=== PATIENT | male | born 1990 | race Caucasian/White ===

== ENCOUNTER 2018-04-04 16:29 | Emergency (ER) | payer OTHER, SELFPAY ==
[2018-04-04 16:32] VITALS: BP 169/101; PULSE 98; RESP 16; TEMP 36.8; O2SAT 98; BMI 40.6
--- NOTE | 2018-04-04 17:55 | CT_ITS ---
STUDY: CT ABDOMEN AND PELVIS WITHOUT CONTRAST REASON FOR EXAM: Male, 27 years old. Right flank pain and history of kidney stones RADIATION DOSAGE (If Supplied By Facility): CTDIvol = ( 23.54 ) mGy, DLP = ( 1293.97 ) mGycm TECHNIQUE: Transaxial images were obtained from the dome of the diaphragm to the symphysis pubis without oral contrast, and without intravenous contrast. Sagittal and coronal images were reconstructed. Individualized dose optimization techniques were used for this CT. COMPARISON: None. FINDINGS: The visualized lung bases are unremarkable. The visualized portions of the heart are within normal limits. Normal liver. Normal gallbladder and extrahepatic biliary system. Normal spleen. Normal pancreas. Normal bilateral adrenal glands. Moderate right-sided hydronephrosis and perinephric fat stranding. There is a stone at the right UPJ measuring 1 cm. Normal left kidney. Normal visualized stomach. Normal small intestine. Normal colon. The appendix is visualized and appears normal. Normal abdominal aorta. Normal inferior vena cava. Normal retroperitoneum. Normal urinary bladder. Normal abdominal wall. Normal osseous structures. CT/Abdomen/Pelvis without Cont IMPRESSION: Right hydronephrosis and stone at the right UPJ as above Electronically Signed: Stiven Marie DO at 19:11 EDT Tel , Service support ,
[2018-04-04] MEDS: Ondansetron 4 MG/2 ML Vial IV (18:01)
[2018-04-04] MEDS: 0.9% Normal Saline 1,000 ML 250 ML IV (18:01)
[2018-04-04] MEDS: Ketorolac 30 MG/ML Syringe IV (18:01)
[2018-04-04] MEDS: 0.9% Normal Saline 1,000 ML 999 ML IV (20:11)
[2018-04-04 20:12] LABS: Absolute Lymphocyte Count 2.06 X10^3/ul (0.83-4.51); Absolute Neutrophil Count 12.7 X10^3/uL (2.0-7.7); Basophil# 0.05 X10^3/uL; Basophil% 0.3 % (0-1); Eosinophil# 0.08 X10^3/uL; Eosinophils% 0.5 % (0-5); Hematocrit 43.8 % (40-54); Hemoglobin 15.4 g/dl (13.0-16.5); Lymphocyte # 2.06 X10^3/ul (4.0); Mean Corp Hgb Conc 35.2 g/gl (32-36); Mean Corpuscular Hgb 29.4 pg (27.0-32.0); Mean Corpuscular Volume 83.7 fL (80-94); Mean Platelet Vol. 10.3 fl (6.2-12.0); Monocyte# 0.94 X10^3/uL; Monocyte% 5.9 % (0-10); POSITIVE COUNT NO; POSITIVE DIFFERENTIAL NO; POSITIVE MORPHOLOGY NO; Platelet Count 418 K/mm3 (150-450); RBC Distribution Width CV 13.3 % (11.6-14.6); RBC Distribution Width SD 41.1 fl (35.1-43.9); Red Blood Count 5.23 M/mm3 (4.6-6.2); White Blood Count 15.9 K/mm3 (4.4-11.0)
[2018-04-04 20:13] VITALS: BP 152/93; PULSE 86; RESP 16; O2SAT 96
[2018-04-04 20:20] LABS: Bacteria 0 SEEN /hpf (None Seen); Mucous, Urine 0 SEEN /hpf (<or=2+); White Blood Cells 0 SEEN /hpf (0-5)
[2018-04-04 20:21] LABS: Anion Gap 8 (5-15); BUN 12 mg/dL (7-18); BUN/Creat Ratio 10.7 RATIO (10-20); Calcium,Total 9.2 mg/dL (8.5-10.1); Chloride 105 mmol/L (98-107); Creatinine, Serum 1.12 mg/dL (0.70-1.30); EST Glomerular Filtration Rate 83 mL/min (>60); Est Glom Filt Rate - Afr Amer 101 mL/min (>60); Estimated Creatinine Clearance 108.74 ml/min; Glucose 115 mg/dL (74-106); Potassium 3.9 mmol/L (3.5-5.1); Sodium Level 139 mmol/L (136-145)
[2018-04-04 20:24] LABS: Color, Urine Yellow (Yellow); Glucose, Dipstick Normal (Normal); Ketone-Dipstick Negative (Negative); Leukocyte Esterase-Dipstick Negative /ul (Negative); Nitrite-Dipstick Negative (Negative); Occult Blood-Urine 250 /ul (Negative); Protein-Dipstick 15 mg/dl (Negative); Urine Bilirubin Dipstick Negative (Negative); Urine Urobilinogen Normal (Normal); Urine pH 6.5 (5.0 - 8.0)
[2018-04-04 20:33] LABS: Red Blood Cells-Urine 5-10 SEEN /hpf (0-5); Squamous Epithelial Cells - UA 0-5 SEEN /hpf (0-5); Urine Clarity Sl Cloudy (Clear)
--- NOTE | 2018-04-04 20:55 | ED.VISSUMM ---
- ER Visit Summary Date of Service: 04/04/18 Chief Complaint: Right flank pain History of Present Illness: The patient is a 27 M with no primary care physician or urologist. He reports he has a history of kidney stones. He had the abrupt onset of right flank pain at 11:00 this morning. It is a dull constant pain with occasional sharp episodes. Pain is 9 out of 10 at worst and 7 out of 10 currently. Is worsened by nothing relieved by nothing. Reports he has been nauseated and vomited 6-7 times. No blood in his emesis. No diarrhea. He has had the urge to urinate. He denies any dysuria or frequency. No fever or chills. Physical Examination: Vitals: Stable. Afebrile. General: Well-nourished and well-developed. Head: Normocephalic atraumatic. Neck: Supple, no lymphadenopathy. No JVD. Nontender. Cardiovascular: Regular rate and rhythm. No murmurs. Respiratory: No respiratory distress. Clear to auscultation bilaterally. Abdominal: Soft, nontender, nondistended, normal bowel sounds. No guarding, rebound, or peritoneal signs. Back: Nontender. Extremities: Nontender, no edema. Skin: Normal color, no rash. Neurologic: Alert and oriented ?3. Cranial nerves II through XII are intact. Normal strength and sensation. Psych: Normal affect. Test Results: CBC is remarkable for a white count of 15.9, segmented neutrophils 80, lymphocytes of 13. Chem-7 is marked for glucose of 115. Of note his creatinine is 1.12. UA shows blood, but no evidence of infection. CT flank shows a 1 cm right U PJ stone with moderate right hydronephrosis and perinephric stranding. Emergency Department Course and Treatment: Patient was treated with Toradol and Zofran IV. He is resting comfortably. Treatment Plan: Patient was discussed with Dr. Lock. He will see him in the office on and schedule surgery on Tuesday. Return to the emergency department for any worsening symptoms. Disposition: To home in improved and stable condition. Impression: 1. Right ureterolithiasis. This note was generated with [employer] software. It may contain incorrect words, spelling, and punctuation that were not noted in review of the chart prior to signing ED Disposition - Plan for ED Patient: Disposition: Home or Assisted Living Chief Complaint: Flank Pain Instructions: ED Stone Renal W Colic Prescriptions: Oxycodone HCl/Acetaminophen [Percocet 5/325] 1 tablet PO Q6H PRN PRN 5 Days #20 tablet PRN Reason: Pain Referrals: Juve Lock MD [STAFF PHYSICIAN] - 2 Days
[2018-04-04 21:10] VITALS: BP 173/97; PULSE 96; RESP 17
== END 2018-04-04 21:16 | disposition home or self-care (01) ==
LOC: ED 18:36
PROVIDERS: Emergency Provider Emergency Medicine
DX: N20.1 Calculus of ureter (principal); N13.30 Unspecified hydronephrosis; Z87.442 Personal history of urinary calculi; Z72.0 Tobacco use
CPT/HCPCS: 74176; 80048; 81001; 85025; 99284; J7030; J2405

== ENCOUNTER → 2018-04-13 08:24 | Outpatient (CLI) | payer OTHER, SELFPAY ==
--- NOTE | 2018-04-13 08:26 | RAD_ITS ---
STUDY: X-RAY - ABDOMEN/PELVIS REASON FOR EXAM: Male, 27 years old. Status post lithotripsy. Status post left-sided stone. TECHNIQUE: Single AP view of the abdomen / pelvis. COMPARISON: Abdomen and pelvic CT exam of April 04, 2018 FINDINGS: The patient actually had a right-sided 1 cm stone at the right ureteropelvic junction on the CT exam of April 04, 2018 There is a pigtail ureteral stent in good position. There is an ill-defined stone density alongside the proximal pigtail which measures approximately 5 x 3 mm, ages not well defined. No additional ureteral or bladder stones. Abdominal bowel gas pattern. Negative for hepatomegaly. Normal visualized osseous structures. RAD/Abdomen Single View IMPRESSION: Right ureteral pigtail stent in good position. 5 x 3 mm stone fragment along side the proximal ureteral catheter at about the level of the ureteropelvic junction. Negative for other ureteral or bladder stones. Electronically Signed: Zahira Zazueta MD at 20:45 EDT , Service support ,
[2018-04-21 12:08] LABS: Ca Oxalate, Dihydrate 10 % (.); Ca Oxalate, Monohydrate 80 % (.); Calcium Phosphate 10 % (.)
[2018-04-21 14:08] LABS: Comment Note: (.)
== END ==
PROVIDERS: Visit Provider Urology
DX: N20.0 Calculus of kidney (principal)
CPT/HCPCS: 74018; 82360

== ENCOUNTER → 2022-12-08 | Outpatient (CLI) | payer OTHER, SELFPAY ==
[2022-12-08 12:25] LABS: Absolute Lymphocyte Count 2.36 X10^3/uL (0.83-4.51); Absolute Neutrophil Count 7.9 X10^3/uL (2.0-7.7); Basophil# 0.08 X10^3/uL; Basophil% 0.7 % (0-1); Eosinophil# 0.44 X10^3/uL; Eosinophils% 3.8 % (0-5); Hematocrit 46.6 % (40-54); Hemoglobin 15.7 g/dL (13.0-16.5); Lymphocyte # 2.36 X10^3/ul (0.83-4.51); Lymphocyte % 20.5 % (19-41); Mean Corp Hgb Conc 33.7 g/dL (32-36); Mean Corpuscular Hgb 29.1 pg (27.0-32.0); Mean Corpuscular Volume 86.3 fL (80-94); Mean Platelet Vol. 9.3 fl (6.2-12.0); Monocyte% 6.1 % (0-10); NRBC Flagged by Analyzer 0 % (0-5); Neutrophil # 7.89 X10^3/uL (2.7-7.7); Neutrophil % 68.6 % (47-70); Platelet Count 451 K/mm3 (150-450); RBC Distribution Width CV 13.2 % (11.6-14.6); RBC Distribution Width SD 41.1 fl (35.1-43.9); White Blood Count 11.5 K/mm3 (4.4-11.0)
[2022-12-08 12:51] LABS: AST(SGOT) 18 U/L (15-37); Alanine Aminotransfer ALT/SGPT 34 U/L (16-61); Albumin, Serum 4.4 g/dL (3.2-5.0); Alkaline Phosphatase 81 U/L (45-117); Anion Gap 8 (5-15); BUN 14 mg/dL (7-18); Calcium,Total 9.6 mg/dL (8.5-10.1); Chloride 104 mmol/L (98-107); Cholesterol 207 mg/dL (200); EST Glomerular Filtration Rate 92 mL/min (>60); Est Glom Filt Rate - Afr Amer 111 mL/min (>60); Globulin 4.2 g/dL (2.2-4.2); Glucose 106 mg/dL (74-106); High Density Lipoprotein 38 mg/dL; Potassium 3.6 mmol/L (3.5-5.1); Protein, Total 8.6 g/dL (6.4-8.2); Sodium Level 140 mmol/L (136-145); Thyroid Stim Hormone (TSH) 2.06 uIU/mL (0.358-3.74); Triglycerides 162 mg/dL; Very Low Density Lipoprotein 32 mg/dL (5-40)
== END | disposition home or self-care (01) ==
PROVIDERS: PCP Nurse Practitioner Family; Referring Provider Nurse Practitioner Family; Visit Provider Nurse Practitioner Family
DX: I10 Essential (primary) hypertension (principal); E66.9 Obesity, unspecified; R73.09 Other abnormal glucose
CPT/HCPCS: 36415; 80053; 80061; 84443; 85025

== ENCOUNTER → 2024-01-24 | Outpatient (CLI) | payer OTHER, SELFPAY ==
[2024-01-24 12:01] LABS: Absolute Lymphocyte Count 3.62 X10^3/uL (0.83-4.51); Absolute Neutrophil Count 5.1 X10^3/uL (2.0-7.7); Basophil# 0.08 X10^3/uL; Basophil% 0.8 % (0-1); Eosinophil# 0.86 X10^3/uL; Eosinophils% 8.1 % (0-5); Hematocrit 44.5 % (40-54); Hemoglobin 14.6 g/dL (13.0-16.5); Lymphocyte # 3.62 X10^3/ul (0.83-4.51); Lymphocyte % 34.1 % (19-41); Mean Corp Hgb Conc 32.8 g/dL (32-36); Mean Corpuscular Hgb 28.6 pg (27.0-32.0); Mean Corpuscular Volume 87.3 fL (80-94); Mean Platelet Vol. 10.1 fl (6.2-12.0); Monocyte# 0.94 X10^3/uL; Monocyte% 8.9 % (0-10); NRBC Flagged by Analyzer 0 % (0-5); Neutrophil # 5.08 X10^3/uL (2.7-7.7); Neutrophil % 47.8 % (47-70); Platelet Count 392 K/mm3 (150-450); RBC Distribution Width CV 13.2 % (11.6-14.6); RBC Distribution Width SD 42.4 fl (35.1-43.9); White Blood Count 10.6 K/mm3 (4.4-11.0)
[2024-01-24 12:59] LABS: ALB/GLOB Ratio 1.2 RATIO (0.9-2.4); AST(SGOT) 19 U/L (15-37); Alanine Aminotransfer ALT/SGPT 34 U/L (16-61); Albumin, Serum 4.3 g/dL (3.2-5.0); Alkaline Phosphatase 64 U/L (45-117); Anion Gap 6 (5-15); BUN 20 mg/dL (7-18); BUN/Creat Ratio 18.2 RATIO (10-20); Calcium,Total 9.7 mg/dL (8.5-10.1); Chloride 105 mmol/L (98-107); Cholesterol 200 mg/dL (200); EST Glomerular Filtration Rate 82 mL/min (>60); Est Glom Filt Rate - Afr Amer 99 mL/min (>60); Globulin 3.7 g/dL (2.2-4.2); Glucose 99 mg/dL (74-106); High Density Lipoprotein 33 mg/dL; Potassium 3.9 mmol/L (3.5-5.1); Sodium Level 139 mmol/L (136-145); Triglycerides 223 mg/dL; Very Low Density Lipoprotein 45 mg/dL (5-40)
== END | disposition home or self-care (01) ==
LOC: BIMLAB 07:55
PROVIDERS: Visit Provider Nurse Practitioner
DX: I10 Essential (primary) hypertension (principal)
CPT/HCPCS: 36415; 80053; 80061; 85025

== ENCOUNTER → 2025-04-22 | Outpatient (CLI) | payer OTHER, SELFPAY ==
[2025-04-22 17:06] LABS: Hematocrit 41.1 % (40-54); Hemoglobin 14.4 g/dL (13.0-16.5); Immature Granulocytes Count 0.030 X10^3/uL (0.0-0.0); Mean Corp Hgb Conc 35.0 g/dL (32-36); Mean Corpuscular Volume 85.4 fL (80-94); Mean Platelet Vol. 9.8 fl (6.2-12.0); NRBC Flagged by Analyzer 0 % (0-5); Platelet Count 384 K/mm3 (150-450); RBC Distribution Width CV 12.8 % (11.6-14.6); RBC Distribution Width SD 39.6 fl (35.1-43.9); Red Blood Count 4.81 M/mm3 (4.6-6.2); White Blood Count 10.7 K/mm3 (4.4-11.0)
[2025-04-22 17:49] LABS: AST(SGOT) 28 U/L (<=37); Alanine Aminotransfer ALT/SGPT 26 U/L (<=46); Albumin, Serum 4.8 g/dL (3.5-5.0); Alkaline Phosphatase 69 U/L (40-129); Anion Gap 15 (5-15); BUN 14 mg/dL (4-19); BUN/Creat Ratio 14.2 RATIO (10-20); Calcium,Total 10.0 mg/dL (7.6-11.0); Carbon Dioxide 24.2 mmol/L (21.0-32.0); Chloride 101 mmol/L (98-108); Cholesterol 229 mg/dL (<=200); Globulin 3.2 g/dL (2.2-4.2); Glucose 88 mg/dL (70-99); Low Density Lipoprotein Calc. 148 mg/dL; Potassium 3.5 mmol/L (3.3-5.1); Triglycerides 217 mg/dL; Very Low Density Lipoprotein 43 mg/dL (5-40); cholesterol:hdl ratio screen 6.12
== END | disposition home or self-care (01) ==
LOC: LAB 16:07
PROVIDERS: PCP Internal Medicine; Referring Provider Internal Medicine; Visit Provider Internal Medicine
DX: Z00.00 Encounter for general adult medical examination without abnormal findings (principal); I10 Essential (primary) hypertension; E78.2 Mixed hyperlipidemia
CPT/HCPCS: 36415; 80053; 80061; 85025